=== PATIENT | female | born 1980 | race Caucasian/White ===

== ENCOUNTER 2016-12-04 13:47 | Inpatient (IN) | payer OTHER ==
[~2016-12-04] VITALS: Ht 162.6 cm; Wt 84.1 kg
[2016-12-04] MEDS ORDERED: D5%-LACTATED RINGERS 1,000 ML IV SCH (14:55)
[2016-12-04] MEDS ORDERED: LACTATED RINGERS 1,000 ML IV SCH (14:55)
[2016-12-04] MEDS ORDERED: OXYTOCIN 30U/ 0.9% NaCL 500ML 500 ML IV ONE (14:55)
[2016-12-04] MEDS ORDERED: FENTANYL PF 100 MCG/2ML IVPush PRN (15:00)
[2016-12-04] MEDS ORDERED: FENTANYL PF 100 MCG/2ML IV PRN (15:00)
[2016-12-04] MEDS ORDERED: ONDANSETRON 2MG/ML, 2ML IVPush PRN (15:00)
[2016-12-04] MEDS ORDERED: LIDOCAINE 1%, 20ML ONE (15:04)
[2016-12-04] MEDS ORDERED: NEWBORN KIT ONE (15:04)
[2016-12-04] MEDS ORDERED: MISOPROSTOL 200 MCG TABLET ONE (15:04)
[2016-12-04] MEDS ORDERED: OXYTOCIN 30U/ 0.9% NaCL 500ML 500 ML ONE (15:04)
[2016-12-04] MEDS: PLEASE ENTER ALLERGIES MC SCH ×4 (15:30→23:30)
[2016-12-04] MEDS: PLEASE ENTER HEIGHT AND WEIGHT MC SCH ×2 (15:30→23:30)
[2016-12-04 15:31] LABS: HEMATOCRIT 43.3 % (34.6-47.8); HEMOGLOBIN 14.7 g/dL (11.7-16.4); WHITE BLOOD COUNT 19.1 x10^3/uL (3.4-10)
[2016-12-04] MEDS: OXYTOCIN 30U/ 0.9% NaCL 500ML 500 ML IV SCH (20:23)
[2016-12-04] MEDS ORDERED: HYDROcodone/APAP 5/325 TABLET PO PRN ×2 (20:30)
[2016-12-04] MEDS ORDERED: IBUPROFEN 600 MG TABLET PO PRN (20:30)
[2016-12-04] MEDS ORDERED: METHYLERGONOVINE 0.2 MG/ML IM PRN (20:30)
[2016-12-04] MEDS ORDERED: CARBOPROST TROMETHAMINE 250 MCG/ML, 1ML IM PRN (20:30)
[2016-12-04] MEDS ORDERED: ONDANSETRON 2MG/ML, 2ML IV PRN (20:30)
[2016-12-04] MEDS ORDERED: MISOPROSTOL 200 MCG TABLET PO PRN (20:30)
[2016-12-04] MEDS ORDERED: DOCUSATE 100 MG CAPSULE PO PRN (20:30)
[2016-12-04] MEDS ORDERED: ACETAMINOPHEN 325 MG TABLET PO PRN (20:30)
[2016-12-04] MEDS ORDERED: CALCIUM CARBONATE 500 MG TAB.CHEW PO PRN (20:30)
[2016-12-04 22:05] VITALS: BP 123/78
[2016-12-05 00:10] VITALS: BP 113/70
[2016-12-05 03:22] LABS: HEMATOCRIT 36.9 % (34.6-47.8); HEMOGLOBIN 12.6 g/dL (11.7-16.4); WHITE BLOOD COUNT 17.6 x10^3/uL (3.4-10)
[2016-12-05 04:10] VITALS: BP 121/76
[2016-12-05] MEDS: OXYTOCIN 30U/ 0.9% NaCL 500ML 500 ML IV SCH (06:23)
[2016-12-05] MEDS: PLEASE ENTER ALLERGIES MC SCH ×2 (07:30)
[2016-12-05] MEDS: PLEASE ENTER HEIGHT AND WEIGHT MC SCH (07:30)
[2016-12-05] MEDS ORDERED: PRENATAL VIT/IRON/FA 1 EACH TABLET PO SCH (09:00)
[2016-12-05] MEDS ORDERED: IBUP-1222 PO (09:47)
[2016-12-05] MEDS ORDERED: HYDR-3240 PO (09:53)
== END 2016-12-05 18:05 | disposition home or self-care (01) | DRG 775 ==
LOC: LDOP 13:47 → UNDOADMIN 15:04 → EDIP 15:04 → UNDOADMIN 15:38 → LDIP 15:38 → UNDOADMIN 15:42 → 2NW 21:41
PROVIDERS: ADMIT Obstetrics & Gynecology; ATTEND Obstetrics & Gynecology
PROC: 0KQM0ZZ Repair Perineum Muscle, Open Approach (ICD-10-PCS; principal; 2016-12-04)
PROC: 10E0XZZ Delivery of Products of Conception, External Approach (ICD-10-PCS; 2016-12-04)
PROC: 4A1H74Z Monitoring of Products of Conception, Cardiac Electrical Activity, Via Natural or Artificial Opening (ICD-10-PCS; 2016-12-04)
DX: O69.81X0 Labor and delivery complicated by cord around neck, without compression, not applicable or unspecified (principal); O70.1 Second degree perineal laceration during delivery; O77.0 Labor and delivery complicated by meconium in amniotic fluid; Z37.0 Single live birth; Z3A.39 39 weeks gestation of pregnancy
CPT/HCPCS: 36415; 82803; 85025; 86850; 86900; J2590; J7120

== ENCOUNTER 2017-03-09 10:58 | Day surgery (SDC) | payer OTHER ==
[~2017-03-09] VITALS: Ht 157.5 cm; Wt 76.2 kg
[~2017-03-09 10:58] MED LIST: HYDR-3240 PO; IBUP-1222 PO
[2017-03-09] MEDS ORDERED: LACTATED RINGERS 1,000 ML IV SCH (11:49)
[2017-03-09] MEDS ORDERED: FENTANYL PF 100 MCG/2ML ONE ×3 (11:50→14:05)
[2017-03-09] MEDS ORDERED: MIDAZOLAM 1 MG/ML, 2ML ONE (11:50)
[2017-03-09 11:54] VITALS: BP 114/74
[2017-03-09 12:16] LABS: HCG UR SG 1.009 (1.003-1.030); MICROSCOPIC AUTO
[2017-03-09 12:18] LABS: CULTURE INDICATED? YES
[2017-03-09 12:21] LABS: BASOPHILS # (AUTO) 0.02 x10^3/uL (0-0.1); BASOPHILS % (AUTO) 0 % (0-1); EOSINOPHILS % (AUTO) 2 % (1-7); LYMPHOCYTES # (AUTO) 1.67 x10^3/uL (1-3.4); LYMPHOCYTES % (AUTO) 30 % (22-44); MD NO; MEAN CORPUSCULAR HEMOGLOBIN 28.6 pg (27.0-34.8); MEAN CORPUSCULAR HGB CONC 33.9 g/dL (32.4-35.8); MEAN CORPUSCULAR VOLUME 84.2 fL (80-100); MEAN PLATELET VOLUME 8.4 fL (7.4-10.4); MONOCYTES % (AUTO) 6 % (2-9); NEUTROPHILS # (AUTO) 3.38 x10^3/uL (1.8-6.8); NEUTROPHILS % (AUTO) 62 % (42-75); PLATELET COUNT 302 x10^3/uL (130-400); RED BLOOD COUNT 4.84 x10^6/uL (3.82-5.3); RED CELL DISTRIBUTION WIDTH 12.9 % (9.6-15.2)
[2017-03-09] MEDS ORDERED: FLUORESCEIN SODIUM 500 MG/5 ML ONE (12:22)
[2017-03-09] MEDS ORDERED: LIDOCAINE/PF 1%-EPI 1:200K, 30 ML ONE (12:22)
[2017-03-09 12:29] LABS: ANION GAP 6 mmol/L (5-15); CALCIUM 8.9 mg/dL (8.5-10.1); CHLORIDE 106 mmol/L (98-107); CREATININE 0.55 mg/dL (0.55-1.02)
[2017-03-09] MEDS ORDERED: DEXAMETHASONE 4 MG/ML, 1ML ONE (12:41)
[2017-03-09] MEDS ORDERED: GLYCOPYRROLATE 0.2MG/1ML, 5ML ONE (12:41)
[2017-03-09] MEDS ORDERED: PROPOFOL 10 MG/ML, 20ML ONE (12:41)
[2017-03-09] MEDS ORDERED: KETOROLAC 30 MG/1 ML ONE (12:41)
[2017-03-09] MEDS ORDERED: SUCCINYLCHOLINE 20 MG/ML, 10ML ONE (12:41)
[2017-03-09] MEDS ORDERED: ROCURONIUM 10 MG/ML,10ML ONE (12:41)
[2017-03-09] MEDS ORDERED: ONDANSETRON 2MG/ML, 2ML ONE (12:41)
[2017-03-09] MEDS ORDERED: NEOSTIGMINE 1 MG/ML, 10ML ONE (12:41)
[2017-03-09] MEDS ORDERED: ALBUTEROL SULFATE 2.5 MG/3 ML NPPB PRN (13:30)
[2017-03-09] MEDS ORDERED: FENTANYL PF 100 MCG/2ML IV PRN (13:30)
[2017-03-09] MEDS ORDERED: MEPERIDINE/PF 25MG/0.5ML IVPush PRN (13:30)
[2017-03-09] MEDS ORDERED: EPHEDRINE 50 MG/ML, 1ML IVPush PRN (13:30)
[2017-03-09] MEDS ORDERED: LABETALOL 5MG/ML, 20ML IV PRN (13:30)
[2017-03-09] MEDS ORDERED: HYDROmorphone 1 MG/ML, 1ML IV PRN (13:30)
[2017-03-09] MEDS ORDERED: METOPROLOL 1 MG/ML, 5ML IV PRN (13:30)
[2017-03-09] MEDS ORDERED: hydrALAzine 20 MG/ML, 1ML IV PRN (13:30)
[2017-03-09] MEDS ORDERED: PROMETHAZINE 25 MG/ML, 1ML IV PRN (13:30)
[2017-03-09] MEDS ORDERED: ONDANSETRON 2MG/ML, 2ML IVPush PRN (13:30)
[2017-03-09] MEDS ORDERED: MIDAZOLAM 1 MG/ML, 2ML IV PRN (13:30)
[2017-03-09] MEDS ORDERED: HYDROcodone/APAP 7.5-325MG/15ML UDC PO PRN (13:30)
[2017-03-09] MEDS ORDERED: ACETAMINOPHEN 325 MG TABLET PO PRN (13:30)
[2017-03-09] MEDS ORDERED: DIAZEPAM 5 MG/ML, 2ML IVPush PRN (13:30)
[2017-03-09] MEDS ORDERED: OXYcodone 5 MG/5 ML ORAL.SOL UDC PO PRN (13:30)
[2017-03-09] MEDS ORDERED: OXYcodone 5 MG/5 ML ORAL.SOL UDC ONE (14:04)
[2017-03-09] MEDS ORDERED: ACETAMINOPHEN 650 MG/20.3 ML UDC ONE (14:04)
== END 2017-03-09 16:45 | disposition home or self-care (01) ==
LOC: OUT 10:58
PROVIDERS: ATTEND Obstetrics & Gynecology Gynecology
DX: D28.7 Benign neoplasm of other specified female genital organs (principal)
CPT/HCPCS: 36415; 58661; 80048; 81001; 81025; 85025; 87086; 88305; J0330; J1100; J1885; J2250; J2405; J2704; J2710; J3010; J3490; J7120